=== PATIENT | female | born 1970 | race Caucasian/White ===

== ENCOUNTER 2018-01-03 15:09 | Emergency (ER) | payer OTHER ==
[2018-01-03] MEDS ORDERED: ACETAMINOPHEN 325 MG TABLET (FP) PO ONE (15:37)
[2018-01-03] MEDS ORDERED: IBUPROFEN 600 MG TABLET (FP) PO ONE ×2 (15:37→15:43)
[2018-01-03] MEDS ORDERED: ACETAMINOPHEN 325 MG TABLET (FP) ONE (15:43)
[2018-01-03 15:44] VITALS: BP 126/85; PULSE 65; TEMP 98.8; BMI 30.4
--- NOTE | 2018-01-03 15:56 | PDOC ---
History of Present Illness - General Chief Complaint: Injury Stated Complaint: FELL ON HEIDY, LEFT ANKLE PAIN Time Seen by Provider: 01/03/18 15:26 History Source: Patient Exam Limitations: No Limitations - History of Present Illness Initial Comments: 01/03/18 15:48 Patient is a 47F with history of asthma and hypothyroidism here today complaining of pain after a fall. She states that she has pain in her left elbow , right wrist, left knee and left ankle. She was able to walk after the event, which happened 5 hours prior to presentation. Denies hitting her head and denies LOC. Patient denies chest pain and shortness of breath. Patient states that she's presenting now because her pain has worsened. Past History - Past Medical History Allergies/Adverse Reactions: Allergies Allergy/AdvReac Type Severity Reaction Status Date / Time No Known Allergies Allergy Verified 01/03/18 15:10 Home Medications: Ambulatory Orders Levothyroxine [Synthroid -] 125 mcg PO DAILY 10/28/17 Asthma: Yes CVA: No COPD: No - Surgical History Appendectomy: Yes - Suicide/Smoking/Psychosocial Hx Smoking Status: No Smoking History: Never smoked Have you smoked in the past 12 months: No Number of Cigarettes Smoked Daily: 0 Information on smoking cessation initiated: No Hx Alcohol Use: No Drug/Substance Use Hx: No Substance Use Type: None Review of Systems - Review of Systems Comments:: 01/03/18 15:51 GENERAL/CONSTITUTIONAL: No fever or chills. No weakness. HEAD, EYES, EARS, NOSE AND THROAT: No change in vision. No sore throat. CARDIOVASCULAR: No chest pain or shortness of breath RESPIRATORY: No cough, wheezing, or hemoptysis. GASTROINTESTINAL: No nausea, vomiting, diarrhea or constipation. GENITOURINARY: No dysuria, frequency, or change in urination. MUSCULOSKELETAL: Positive for right wrist, left elbow, left knee and left ankle pain. Left parasternal pain. SKIN: No rash NEUROLOGIC: No headache, vertigo, loss of consciousness, or change in strength/ sensation. ALLERGIC/IMMUNOLOGIC: No hives or skin allergy. *Physical Exam - Vital Signs Last Vital Signs Temp Pulse Resp BP Pulse Ox 98.8 F 65 20 126/85 98 01/03/18 15:10 01/03/18 15:10 01/03/18 15:10 01/03/18 15:10 01/03/18 15:10 - Physical Exam Comments: 01/03/18 15:56 GENERAL: Awake, alert, and fully oriented, in no acute distress HEAD: No signs of trauma, normocephalic, atraumatic EYES: PERRLA, EOMI, sclera anicteric, conjunctiva clear ENT: Auricles normal inspection, hearing grossly normal, nares patent, oropharynx clear without exudates. Moist mucosa NECK: Normal ROM, supple, no lymphadenopathy, JVD, or masses. No midline tenderness. BACK: No midline tenderness, no signs of trauma, positive for paraspinal tenderness LUNGS: No distress, speaks full sentences, clear to auscultation bilaterally HEART: Regular rate and rhythm, normal S1 and S2, no murmurs, rubs or gallops, peripheral pulses normal and equal bilaterally. ABDOMEN: Soft, nontender, normoactive bowel sounds. No guarding, no rebound. No masses NEUROLOGICAL: Cranial nerves II through XII grossly intact. Normal speech, no focal sensorimotor deficits SKIN: Warm, Dry, normal turgor, no rashes or lesions noted. L ELBOW: Tenderness in left tip of elbow, full range of motion, neurovascularly intact L WRIST: Tender in proximal part palm, no snuffbox tenderness, good salon designer strength, neurovascularly intact L KNEE: Tender to palpation over patella, full range of motion, neurovascularly intact L ANKLE: Tender over lateral malleolus, full range of motion, neurovascualrly intact ED Treatment Course - RADIOLOGY Radiology Studies Ordered: Category Date Time Status ANKLE & FOOT-LEFT* [RAD] Stat Radiology 01/03/18 15:36 Ordered ELBOW-LEFT [RAD] Stat Radiology 01/03/18 15:36 Ordered KNEE 3 POS-LEFT [RAD] Stat Radiology 01/03/18 15:43 Ordered WRIST W/HAND-RIGHT* [RAD] Stat Radiology 01/03/18 15:36 Ordered - Medications Given in the ED: ED Medications Discontinued Medications Generic Name Dose Route Start Last Admin Trade Name Freq PRN Reason Stop Dose Admin Acetaminophen 650 mg 01/03/18 15:37 01/03/18 15:47 Tylenol - PO 01/03/18 15:38 650 mg ONCE ONE Administration Ibuprofen 600 mg 01/03/18 15:37 01/03/18 15:46 Motrin - PO 01/03/18 15:38 600 mg ONCE ONE Administration Medical Decision Making - Medical Decision Making 01/03/18 16:01 Patient is a 47F with history of asthma and hypothyroidism here today with pain after a fall. Vital signs stable and normal. Injuries minor. Will evaluate with x-rays of left elbow, right wrist, left knee and left ankle. Given ibuprofen and tylenol for pain. Likely discharge home. 01/03/18 16:27 X-rays negative, discharged with return precautions and instructions to take tylenol and ibuprofen as needed. Ambulatory in the ED. *DC/Admit/Observation/Transfer Diagnosis at time of Disposition: Ankle sprain - Discharge Dispostion Disposition: HOME Condition at time of disposition: Good Decision to Admit order: No - Referrals - Patient Instructions Printed Discharge Instructions: DI for Ankle Sprain Additional Instructions: Please take ibuprofen and tylenol as needed for pain. Please follow the instructions on the bottle. Please return if you have any new, worsening or concerning symptoms. - Post Discharge Activity Forms/Work/School Notes: Back to Work
--- NOTE | 2018-01-03 16:02 | PDOC ---
Attending Attestation - HPI HPI: 01/03/18 16:02 Patient is a 47 year old female with PMHx of asthma and hypothyroidism, who presents to the ED s/p slip and fall. 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 She states that she hit her right wrist. She denies hitting her head or losing consciousness. She is complaining of left ankle, left knee, left elbow, and right wrist pain. She is also complaining of neck and back pain. - Physicial Exam PE: 01/03/18 16:03 GENERAL: Awake, alert, and fully oriented, in no acute distress HEAD: No signs of trauma EYES: PERRLA, EOMI, sclera anicteric, conjunctiva clear ENT: Auricles normal inspection, nares patent, Moist mucosa NECK: Normal ROM, supple, no lymphadenopathy, JVD, or masses LUNGS: Breath sounds equal, clear to auscultation bilaterally. No wheezes, and no crackles HEART: Regular rate and rhythm, normal S1 and S2, no murmurs, rubs or gallops ABDOMEN: Soft, nontender, normoactive bowel sounds. No guarding, no rebound. No masses EXTREMITIES: Left lateral infrapatellar tenderness, no edema. No swelling. No ecchymosis. Distally neurovascularly intact. FROM of knee b/l. No effusion. Patellar - tender to palpation. No clubbing or cyanosis. No cords, or erythema. NEUROLOGICAL: Normal speech SKIN: Warm, Dry, normal turgor, no rashes or lesions noted. <Eun Freeman - Last Filed: 01/03/18 16:02> - Resident Resident Name: Geo Em - ED Attending Attestation I have performed the following: I have examined & evaluated the patient, The case was reviewed & discussed with the resident, I agree w/resident's findings & plan, Exceptions are as noted - Medical Decision Making 01/03/18 17:39 differential fx vs strain right wrist, left knee and ankle. plan xrays, pain control reassess. mar pete home with ortho followup a needed. <Natalie Blanco - Last Filed: 01/03/18 17:40>
== END 2018-01-03 16:35 | disposition home or self-care (01) ==
LOC: FER 15:09
DX: S93.402A Sprain of unspecified ligament of left ankle, initial encounter (principal); M25.522 Pain in left elbow; M25.562 Pain in left knee; M25.531 Pain in right wrist; W10.8XXA Fall (on) (from) other stairs and steps, initial encounter; Y93.89 Activity, other specified; Y92.89 Other specified places as the place of occurrence of the external cause; E03.9 Hypothyroidism, unspecified; J45.909 Unspecified asthma, uncomplicated
CPT/HCPCS: 73070-TC-LT-FY; 73110-TC-RT-FY; 73130-TC-RT-FY; 73562-TC-LT-FY; 73610-TC-LT-FY; 73630-TC-LT; 99281-25

== ENCOUNTER 2018-09-26 04:59 | Day surgery (SDC) | payer OTHER ==
[2018-09-21 12:47] VITALS: BMI 29.2
[2018-09-26] MEDS ORDERED: BUPIVACAINE HCL/PF 0.5% (5MG/ML) 10 ML VIAL ONE (13:30)
[2018-09-26] MEDS ORDERED: LIDOCAINE HCL 1%, 10 MG/ML (20ML VIAL) ONE (13:30)
[2018-09-26] MEDS ORDERED: MIDAZOLAM HCL 2 MG/2 ML SINGLE DOSE VIAL ONE ×3 (14:01→15:15)
[2018-09-26] MEDS ORDERED: ceFAZolin SODIUM 1 GM VIAL IVPB ONE (15:24)
[2018-09-26] MEDS ORDERED: BUPIVACAINE HCL/PF 0.5% (5MG/ML) 10 ML VIAL IJ ONE ×2 (15:28)
[2018-09-26] MEDS ORDERED: LIDOCAINE HCL 1%, 10 MG/ML (20ML VIAL) NR ONE ×2 (15:28)
--- NOTE | 2018-09-26 16:02 | HP ---
Satellite [facility] - Chief Complaint Chief Complaint: right wrist pain History of Present Illness: right wrist dequervain's release History Source: Patient Limitations to Obtaining History: No Limitations - Past Medical History Allergies/Adverse Reactions: Allergies Allergy/AdvReac Type Severity Reaction Status Date / Time No Known Allergies Allergy Verified 09/26/18 13:42 - Current Medications Current Medications: Home Medications Medication Instructions Recorded Levothyroxine [Synthroid -] 125 mcg PO DAILY 10/28/17 Albuterol Sulfate Inhaler - 1 puff IH PRN 09/21/18 [Ventolin Hfa Inhaler -] Satellite Physical Exam - Physical Examination Vital Signs: Vital Signs Period Temp Pulse Resp BP Sys/Miller Pulse Ox Last 24 Hr 97.9 F 60 16 141/86 99 General Appearance: Well Nourished ENT: Clear Lung: Clear to auscultation Heart: Regular rate & rhythm Breasts: Soft Abdomen: Soft Extremities: No edema Satellite Impression/Plan - Impression/Plan Impression: right Dequervain's Operative Procedure: right Dequervain's release, tendon sheath excision Date to be Performed: 09/26/18
[2018-09-26] MEDS ORDERED: oxyCODONE HCL 5 MG TABLET PO PRN (16:06)
[2018-09-26] MEDS ORDERED: ONDANSETRON 4 MG/2 ML VIAL IVPUSH PRN (16:06)
[2018-09-26] MEDS ORDERED: KETOROLAC TROMETHAMINE 30 MG/1 ML VIAL IVPUSH ONE (16:07)
[2018-09-26] MEDS ORDERED: LACTATED RINGERS SOLUTION 1,000 ML IV SCH (16:15)
[2018-09-26] MEDS ORDERED: KETOROLAC TROMETHAMINE 30 MG/1 ML VIAL ONE (16:16)
--- NOTE | 2018-09-26 16:23 | SPEC ---
DATE OF OPERATION: DATE OF DICTATION: 09/26/2018 PREOPERATIVE DIAGNOSIS: Right de Quervains tenosynovitis. POSTOPERATIVE DIAGNOSIS: Right de Quervains tenosynovitis. PROCEDURE: Right de Quervains release and tendon sheath excision. SURGEON: Neil Steiner M.D. SPOOL WINDER: None. ANESTHESIA: MAC with local injection of 10 mL of 0.5% Marcaine and 1% lidocaine mix. ANESTHESIOLOGIST: DRAINS: None. COMPLICATIONS: None. BLOOD LOSS: None. BLOOD GIVEN: None. SPECIMEN: Tendon sheath, right wrist. INDICATIONS: This patient is a 48-year-old female with a preoperative diagnosis of a right wrist de Quervain tenosynovitis. After understanding the potential risks, complications, alternatives, and benefits of surgery versus nonsurgical treatment, the patient elected to undergo this procedure. Specifically, the patient does understand that she may have temporary or permanent paresthesias; she may lack a complete relief of her pain; she may need additional treatments like cortisone injections or surgery in the future. PROCEDURE: Patient was brought to the operating room, peripheral IV placed, IV sedation given. One gram of IV Ancef was given. MAC anesthesia was induced. The tourniquet was applied to the right arm. The entire care was done under 3.8-loop magnification. The right upper extremity was prepped and draped in a sterile fashion. A longitudinal incision was marked out with a marking pen. A mix of 10 mL of 0.5% Marcaine, 1% lidocaine were injected in and around the surgical area. The right upper extremity was then elevated, exsanguinated with an Esmarch bandage, and the tourniquet inflated to 250 mmHg. A No.-15 scalpel blade was utilized to make a longitudinal incision. Subcutaneous hemostasis was achieved with a bipolar cautery. Dissection was done with a Littler scissors down to the first dorsal wrist compartment. Great care was taken to directly visualize and preserve all crossing sensory branches of the sensory nerve. Under direct visualization, the first dorsal wrist compartment was visualized and it was freed up from some adhesions with a Avilla elevator. Next, a fresh No.-15 scalpel blade was utilized to open up the first dorsal wrist compartment, starting proximally and going distally both with the No.-15 scalpel blade and also with a Littler scissors. The anatomy was seen to have multiple slips of the abductor pollicis longus and the extensor pollicis brevis was in its own tendon tunnel. This was also released and the wall between the two excised. The roof of the tunnel was excised. This was all passed off the field as specimen. The volar lip of the first dorsal wrist compartment was preserved to prevent volar subluxation. The release was completed both distally and proximally in both compartments. I was able to bring out all slips through the wound with a Ragnell retractor and there were no obvious points of compression. The area was copiously irrigated and washed out, again explored and I didn't see any other abnormal tissue and therefore closure was begun. Undyed 4-0 Vicryl was used to close the deep dermal layer. Final skin reapproximation was done with a running subcuticular 4-0 Biosyn stitch. The area was then washed and dried, covered with Steri-Strips, 4 x 4's, fluffs between the fingers, Webril and Coban used to make a thumb-spica Coban splint. The tourniquet was taken down after a total tourniquet time of 21 minutes. There were no complications during the case. The patient tolerated the procedure quite well and was brought to ambulatory recovery room in stable condition. NEIL STEINER M.D. [id number]
[2018-09-26 18:15] VITALS: BP 132/73; PULSE 72; TEMP 97.9
--- NOTE | 2018-09-29 17:52 | PATH ---
Surgical Pathology Report Patient Name: JACE BOWDEN [facility]. Rec. #: [id number] /Age/Gender: 1970 (Age: 48) / F Account: [id number] Location: [facility] SURGICAL Taken: 09/26/2018 Received: 09/27/2018 Reported: 09/29/2018 Physicians: Neil Joshi M.D. Specimen(s) Received RIGHT WRIST TENDON SHEATH Clinical History De quervains tenosynovitis Final Diagnosis RIGHT WRIST TENDON SHEATH, EXCISION: FIBROCONNECTIVE TISSUE WITH FIBROSIS AND DEGENERATIVE CHANGE. Electronically Signed Shanice Bowser M.D. Gross Description Received in formalin labeled "tendon sheath right wrist," is a 1.5 x 1.0 x 0.2 cm aggregate of bentley-yellow portions of soft tissue. The specimen is submitted in toto in one cassette. /09/28/201809/28/2018
== END 2018-09-26 18:17 | disposition home or self-care (01) ==
LOC: JASU-SURG 04:59
PROVIDERS: ATTEND Orthopaedic Surgery
PROC: 0LB50ZZ Excision of Right Lower Arm and Wrist Tendon, Open Approach (ICD-10-PCS; 2018-09-26)
PROC: 0LN50ZZ Release Right Lower Arm and Wrist Tendon, Open Approach (ICD-10-PCS; principal; 2018-09-26 14:30)
DX: M65.4 Radial styloid tenosynovitis [de Quervain] (principal)
CPT/HCPCS: 84703; 88304-TC; 94760